=== PATIENT | male | born 1990 | race Caucasian/White ===

== ENCOUNTER 2018-11-15 00:58 | Emergency (ER) | payer OTHER ==
[2018-11-15] MEDS ORDERED: Bupivacaine 0.5% 10 ML VIAL ONE (01:12)
[2018-11-15 01:17] LABS: Hemoglobin 16.6 g/dL (14.0-18.0); Mean Corpuscular HGB CONC 32.8 g/dL (32.0-36.0); Mean Corpuscular Hemoglobin 30.4 pg (27.0-31.0); Mean Corpuscular Volume 92.8 fL (78.0-98.0); Mean Platelet Volume 7.9 fL (7.4-10.4); Platelet Count 312 thou/uL (130-400); RBC Distribution Width 11.9 % (11.5-14.5); Red Blood Cell (RBC) Count 5.47 mill/uL (4.70-6.10); White Blood Cell (WBC) Count 9.6 thou/uL (4.8-10.8)
[2018-11-15 01:42] LABS: Band 1 % (5-11); Lymphocytes 52 % (21-51); MDiff Complete? YES; Monocytes 11 % (0-10); Neutrophil 34 % (42-75); Reactive Lymphocytes 2 % (0-10)
[2018-11-15 01:56] LABS: ALT (SGPT) 22 U/L (8-55); AST (SGOT) 22 U/L (5-34); Albumin 4.9 g/dL (3.5-5.0); Alcohol 323 mg/dL (Less than 10); Alkaline Phosphatase 60 U/L (40-150); Anion Gap 18 mmol/L (10-20); BUN (Urea Nitrogen) 9 mg/dL (8.9-20.6); Bilirubin, Total 0.2 mg/dL (0.2-1.2); Calc. Creatinine Clearance 0 mL/min (70-130); Calcium 9.9 mg/dL (7.8-10.44); Carbon Dioxide 21 mmol/L (22-29); Chloride 110 mmol/L (98-107); Estimated GFR-MDRD 65; Globulin 3.5 g/dL (2.4-3.5); Glucose 106 mg/dL (70-105); Protein, Total 8.4 g/dL (6.0-8.3); Sodium 146 mmol/L (136-145)
[2018-11-15] MEDS ORDERED: Ketorolac Tromethamine 30 MG/ML VIAL ONE (02:37)
[2018-11-15] MEDS ORDERED: Bacitracin Zinc 1 Packet ONE (02:56)
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
[2018-11-15] MEDS ORDERED: ISOVUE-370 76%-LOCM 1 ML ONE (10:11)
== END 2018-11-15 03:10 | disposition home or self-care (01) ==
LOC: ERS 00:58
DX: S11.91XA Laceration without foreign body of unspecified part of neck, initial encounter (principal); W25.XXXA Contact with sharp glass, initial encounter
CPT/HCPCS: 12005; 70450; 70498; 80053; 80307; 85025; 96361; 96374; G0390; J1885; J3490; Q9966